=== PATIENT | female | born 1950 | race Caucasian/White ===

== ENCOUNTER 2024-05-09 05:41 | Emergency (ER) | payer MEDICARE, BC ==
[~2024-05-09] VITALS: Ht 160 cm; Wt 66.8 kg
[2024-05-09] MEDS: cephalexin 250mg capsule PO ONE (07:14)
[2024-05-09] MEDS ORDERED: CEPH-585 PO (08:33)
[2024-05-09 08:45] VITALS: BP 134/82; PULSE 62; RESP 16; TEMP 98; O2SAT 95
== END 2024-05-09 08:46 | disposition home or self-care (01) ==
LOC: ER 05:42
DX: S62.627A Displaced fracture of middle phalanx of left little finger, initial encounter for closed fracture (principal); S60.511A Abrasion of right hand, initial encounter; M25.561 Pain in right knee; W18.39XA Other fall on same level, initial encounter; Y93.89 Activity, other specified; Y92.89 Other specified places as the place of occurrence of the external cause; Y99.8 Other external cause status
CPT/HCPCS: 29130; 73130; 73560; 73700; 99284